=== PATIENT | female | born 1995 | race Caucasian/White ===

== ENCOUNTER 2017-01-27 01:39 | Emergency (ER) | payer SELFPAY ==
[2017-01-27 01:45] VITALS: BP 116/70; PULSE 66; TEMP 97.9; BMI 20.5
[2017-01-27] MEDS ORDERED: AZITHROMYCIN 1 GM PACKET PO ONE (02:03)
--- NOTE | 2017-01-27 02:08 | PDOC ---
History of Present Illness - General Chief Complaint: Pain Stated Complaint: pelvic pain Time Seen by Provider: 01/27/17 02:01 History Source: Patient Exam Limitations: No Limitations - History of Present Illness Initial Comments: 01/27/17 02:08 This is a 21-year-old female who comes in complaining of intermittent pelvic pain times today. Patient says she is not having any pain at this time. Patient describes the pain as a crampy type pain. With a small amount of vaginal spotting. Patient is sexually active does not use any protection. Patient otherwise denies any fevers, chills, vaginal odor, history of STDs. PAST MEDICAL HISTORY: no significant history PAST SURGICAL HISTORY: no significant history FAMILY HISTORY: no pertinant history SOCIAL HISTORY: Pt lives with family and is employed. MEDICATIONS: reviewed ALLERGIES: As per nursing notes Review of Systems General: No fevers or chills, no weakness, no weight loss HEENT: No change in vision. No sore throat,. No ear pain CardioVascular: No chest pain or shortness of breath Respiratory:No cough, or wheezing. Gastrointestinal: no nausea, vomitting, diarrhea or constipation, No rectal bleeding, + pelvic pain Genitourinary: No dysuria, hematuria, or frequency Musculoskeletal: No joint or muscle pain or swelling Neurologic: No headache, vertigo, dizziness or loss of consciousness Psychiatric: nor depression Skin: No rashes or easy bruising Endocrine: no increased thirst or abnormal weight change Allergic: no skin or latex allergy All other systems reviewed and normal Exam: General: Well-nourished well-developed individual, no acute distress HEENT: Throat: Normal, tonsils normal, no erythema or exudate Neck: Supple, no meningeal signs, no lymphadenopathy Eyes::Pupils equal reactive and round, extraocular motion intact Respiratory: Lungs clear to auscultation bilateral Abdomen: Soft, nondistended, normal bowel sounds, nontender to palpation diffusely Pelvic: Tender on palpation of the suprapubic area. There is no guarding or rebound Bimanual exam there is some mild cervical motion tenderness but no adnexal tenderness bilateral. Speculum exam there is a small amount of vaginal discharge from the cervix. Cervix is otherwise normal. Extremities: Warm, dry, no cyanosis, clubbing, or edema Skin: No rashes Neuro: Alert and oriented x3, nonfocal exam, grossly intact, normal gait Psych: Normal mood and affect Assessment and plan: This is a 21-year-old female who comes in complaining of pelvic pain 1 day. On pelvic exam there is some vaginal discharge some mild cervical motion tenderness. Patient treated for STDs and urinalysis was sent. Patient's urinalysis was negative for and infection and patient discharged home. Past History - Past Medical History Allergies/Adverse Reactions: Allergies Allergy/AdvReac Type Severity Reaction Status Date / Time clams Allergy Uncoded 02/18/16 18:25 Home Medications: Ambulatory Orders NK [No Known Home Medication] 01/27/17 Anemia: No Asthma: No Cardiac Disorders: No GI Disorders: No HTN: No Thyroid Disease: No Other medical history: DENIES - Immunization History Td Vaccination: Yes Immunization Up to Date: Yes - Psycho/Social/Smoking Cessation Hx Anxiety: No Suicidal Ideation: No Smoking Status: Yes Smoking History: Current some day smoker Number of Cigarettes Smoked Daily: 1 Information on smoking cessation initiated: Yes 'Breaking Loose' booklet given: 01/27/17 Hx Alcohol Use: No Drug/Substance Use Hx: No Substance Use Type: None Abd/GI Specific PMHX - Complaint Specific PMHX GERD: No *Physical Exam - Vital Signs Last Vital Signs Temp Pulse Resp BP Pulse Ox 97.9 F 66 16 116/70 97 01/27/17 01:42 01/27/17 01:42 01/27/17 01:42 01/27/17 01:42 01/27/17 01:42 *DC/Admit/Observation/Transfer Diagnosis at time of Disposition: Pelvic pain - Discharge Dispostion Disposition: HOME Condition at time of disposition: Stable - Patient Instructions Printed Discharge Instructions: Facts About Sexually Transmitted Infections Additional Instructions: You were fully treated for chlamydia and gonorrhea. It is very important that you follow-up with an OB doctor as you need a Pap smear and follow-up in case her symptoms do not improve. Tylenol or Motrin as needed for the pain. Return to the emergency department immediately with ANY new, persistent or worsening symptoms. Continue any medications as previously prescribed by your physician. You should follow up with your primary doctor as soon as possible regarding today's emergency department visit. . Please make sure your doctor reviews the results of your emergency evaluation. Thank you for coming to the Emergency Department today for your care. It was a pleasure to see you today. Please note that your evaluation is INCOMPLETE until you follow-up with your doctor.
[2017-01-27 02:46] LABS: URINE APPEARANCE CLEAR; URINE BILIRUBIN NEGATIVE (NEGATIVE); URINE COLOR YELLOW; URINE GLUCOSE (UA) NEGATIVE (NEGATIVE); URINE KETONE NEGATIVE (NEGATIVE); URINE LEUK ESTERASE NEGATIVE (NEGATIVE); URINE NITRITE NEGATIVE (NEGATIVE); URINE PROTEIN NEGATIVE (NEGATIVE); URINE UROBILINOGEN NEGATIVE E.U./dl (0.2-1.0)
[2017-01-27 02:52] LABS: URINE BLOOD 1+ (NEGATIVE)
[2017-01-27 02:54] LABS: URINE MUCUS RARE; URINE RBC 5 /hpf (0-3)
[2017-01-27] MEDS ORDERED: AZITHROMYCIN 250 MG TABLET (FP) ONE (02:58)
== END 2017-01-27 03:13 | disposition home or self-care (01) ==
LOC: FER 01:39
DX: R10.2 Pelvic and perineal pain (principal); F17.210 Nicotine dependence, cigarettes, uncomplicated
CPT/HCPCS: 36415; 81003; 81015; 84703; 87491; 87591; 99281-25

== ENCOUNTER 2019-06-16 17:23 | Emergency (ER) | payer SELFPAY ==
[2019-06-16 17:53] VITALS: BP 123/85; PULSE 97; TEMP 98.7; BMI 20.7
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
== END 2019-06-16 19:56 | disposition home or self-care (01) ==
LOC: JERFT 17:23 → JER 17:23 → JERFT 19:56
DX: G47.00 Insomnia, unspecified (principal)
CPT/HCPCS: 99281-25

== ENCOUNTER 2019-09-19 20:39 | Emergency (ER) | payer SELFPAY ==
[2019-09-19 20:53] VITALS: BP 107/68; PULSE 81; TEMP 97.4; BMI 21.6
[2019-09-19] MEDS ORDERED: CEPHALEXIN MONOHYDRATE 500 MG CAPSULE (UD) PO ONE (21:36)
[2019-09-19] MEDS ORDERED: IBUPROFEN 600 MG TABLET (FP) PO ONE (21:37)
[2019-09-19] MEDS ORDERED: CEPHALEXIN MONOHYDRATE 500 MG CAPSULE (UD) ONE (21:41)
--- NOTE | 2019-09-19 21:44 | PDOC ---
History of Present Illness - General Chief Complaint: Injury Stated Complaint: R/FOURTH FINGER INJURY Time Seen by Provider: 09/19/19 21:31 History Source: Patient Exam Limitations: No Limitations - History of Present Illness Initial Comments: 09/19/19 21:38 23-year-old female denies past medical history, [id number] complains of right fourth fingernail pain and swelling for 3 days. Patient removed nail extension yesterday and expressed pus from the cuticle. Denies fever, chills, nausea, vomiting or any other symptoms. Tetanus is up-to-date. ROS: GENERAL/CONSTITUTIONAL: No fever, chills, weakness, dizziness HEAD, EYES, EARS, NOSE AND THROAT: No changes in vision, No ear pain or discharge, No sore throat CARDIOVASCULAR: No chest pain RESPIRATORY: No shortness of breath or cough GASTROINTESTINAL: No pain, nausea, vomiting, diarrhea or constipation GENITOURINARY: No dysuria MUSCULOSKELETAL: Right fourth fingernail pain and swelling, no neck or back pain SKIN: No rash NEUROLOGIC: No headache, vertigo, loss of consciousness, or loss of sensation PE: GENERAL: well-appearing, NAD HEAD: NCAT EYES: Pupils equal, round and reactive to light, sclera anicteric, conjunctiva clear ENT: pharynx: no erythema, no exudate, uvula midline NECK: supple CHEST: nontender RESP: clear, no w/r/r CARDIO: rrr, no m/g/r ABD: +BS, soft, nontender, non distended BACK: no midline spinal ttp, no CVAT EXTREMITIES: Normal range of motion, mild erythema and swelling noted to right fourth cuticle, no pus pocket noted, no streaking noted NEUROLOGICAL: Normal speech, normal gait SKIN: Warm, Dry Is this a multiple visit Asthma Patient?: No Past History - Past Medical History Allergies/Adverse Reactions: Allergies Allergy/AdvReac Type Severity Reaction Status Date / Time clams Allergy Uncoded 06/16/19 17:50 Home Medications: Ambulatory Orders Cephalexin [Keflex] 500 mg PO TID 10 Days #30 capsule 09/19/19 Anemia: No Asthma: No Cardiac Disorders: No COPD: No GI Disorders: No HTN: No Thyroid Disease: No - Immunization History Td Vaccination: Yes Immunization Up to Date: Yes - Psycho Social/Smoking Cessation Hx Smoking Status: Yes Smoking History: Never smoked Number of Cigarettes Smoked Daily: 1 'Breaking Loose' booklet given: 01/27/17 Hx Alcohol Use: No Drug/Substance Use Hx: No Substance Use Type: None *Physical Exam - Vital Signs Last Vital Signs Temp Pulse Resp BP Pulse Ox 97.4 F L 81 16 107/68 100 09/19/19 20:51 09/19/19 20:51 09/19/19 20:51 09/19/19 20:51 09/19/19 20:51 Medical Decision Making - Medical Decision Making 09/19/19 21:40 23-year-old female denies past medical history, [id number], presents complaining of pain to right fourth fingernail for 3 days. Removed no extension yesterday and noticed pus draining from the cuticle. Paronychia No I&D indicated at this time We will treat with cephalexin Ibuprofen for pain Return precautions discussed Discharge - Discharge Information Problems reviewed: Yes Clinical Impression/Diagnosis: Paronychia Condition: Stable Disposition: HOME - Additional Discharge Information Prescriptions: Cephalexin [Keflex] 500 mg PO TID 10 Days #30 capsule - Follow up/Referral Referrals: Ginger Costa MD [Primary Care Provider] - - Patient Discharge Instructions Additional Instructions: Take cephalexin 500 mg 3 times daily for 10 days Ibuprofen 600 every 6 hours as needed for pain If fever, chills, worsening pain and swelling return to the ED Follow up with your doctor within 1 week - Post Discharge Activity
== END 2019-09-19 21:51 | disposition home or self-care (01) ==
LOC: JERFT 20:39
DX: L03.011 Cellulitis of right finger (principal)
CPT/HCPCS: 99282-25

== ENCOUNTER 2022-02-18 12:04 | Emergency (ER) | payer OTHER ==
[2022-02-18 12:16] VITALS: BP 99/55; PULSE 94; TEMP 98.4; BMI 22.3
[2022-02-18] MEDS ORDERED: KETOROLAC TROMETHAMINE 30 MG/1 ML VIAL IM ONE (14:51)
[2022-02-18] MEDS ORDERED: KETOROLAC TROMETHAMINE 30 MG/1 ML VIAL ONE (14:52)
== END 2022-02-18 15:05 | disposition home or self-care (01) ==
LOC: JERFT 12:04
PROC: 3E023GC Introduction of Other Therapeutic Substance into Muscle, Percutaneous Approach (ICD-10-PCS; principal; 2022-02-18)
PROC: 2W3QX1Z Immobilization of Right Lower Leg using Splint (ICD-10-PCS; 2022-02-18)
DX: S82.831A Other fracture of upper and lower end of right fibula, initial encounter for closed fracture (principal); W19.XXXA Unspecified fall, initial encounter
CPT/HCPCS: 73610-TC-RT-FY; 73630-TC-RT-FY; 99284-25

== ENCOUNTER 2022-08-04 02:10 | Emergency (ER) | payer OTHER ==
[2022-08-04 02:21] VITALS: BP 120/74; PULSE 71; TEMP 98.2; BMI 21.4
[2022-08-04] MEDS ORDERED: DEXAMETHASONE SOD PHOSPHATE 10 MG/1 ML VIAL IM ONE (02:39)
[2022-08-04] MEDS ORDERED: DEXAMETHASONE SOD PHOSPHATE 10 MG/1 ML VIAL ONE (02:53)
[2022-08-04] MEDS ORDERED: ALBUTEROL SO4 2.5/IPRATROPIUM 0.5 INH SOL 3 ML VIAL.NEB. NEB ONE (02:53)
[2022-08-04] MEDS: ALBUTEROL SO4 2.5/IPRATROPIUM 0.5 INH SOL 3 ML VIAL.NEB. NEB SCH ×4 (02:55→03:21)
[2022-08-04 03:35] VITALS: RESP 20
== END 2022-08-04 04:04 | disposition home or self-care (01) ==
LOC: JER 02:10
PROC: 3E023GC Introduction of Other Therapeutic Substance into Muscle, Percutaneous Approach (ICD-10-PCS; principal; 2022-08-04)
PROC: 3E0F7GC Introduction of Other Therapeutic Substance into Respiratory Tract, Via Natural or Artificial Opening (ICD-10-PCS; 2022-08-04)
DX: J40 Bronchitis, not specified as acute or chronic (principal)
CPT/HCPCS: 0241U-QW; 71045-TC-FY; 99285-25; J1100

== ENCOUNTER 2022-09-30 14:32 | Emergency (ER) | payer OTHER ==
[2022-09-30 14:53] VITALS: BP 144/88; PULSE 94; RESP 17; TEMP 98.1; BMI 21.9
== END 2022-09-30 16:09 | disposition home or self-care (01) ==
LOC: JERFT 14:32
DX: Z71.1 Person with feared health complaint in whom no diagnosis is made (principal)
CPT/HCPCS: 99281-25

== ENCOUNTER 2023-03-03 05:59 | Emergency (ER) | payer OTHER ==
[2023-03-03 06:08] VITALS: BP 96/58; PULSE 72; RESP 18; TEMP 98
== END 2023-03-03 08:47 | disposition home or self-care (01) ==
LOC: JER 05:59
DX: K59.00 Constipation, unspecified (principal)
CPT/HCPCS: 99282-25